=== PATIENT | female | born 1955 | race Caucasian/White ===

== ENCOUNTER → 2019-09-21 09:29 | Outpatient (BNVA) | payer SELFPAY | PROVIDERS: Visit Provider Nurse Practitioner Family | DX: N30.00 Acute cystitis without hematuria; R39.9 Unspecified symptoms and signs involving the genitourinary system | CPT/HCPCS: 80053; 81000; 87077; 87086; 87186 ==

== ENCOUNTER → 2020-07-29 15:06 | Outpatient (BNVA) | payer OTHER, SELFPAY | PROVIDERS: Visit Provider Obstetrics & Gynecology | DX: N81.4 Uterovaginal prolapse, unspecified (principal) | CPT/HCPCS: 76830 ==

== ENCOUNTER → 2020-09-25 08:08 | Outpatient (BNVA) | payer OTHER, SELFPAY | PROVIDERS: Visit Provider Obstetrics & Gynecology | DX: N81.2 Incomplete uterovaginal prolapse (principal); Z20.822 Contact with and (suspected) exposure to COVID-19 | CPT/HCPCS: 87635 ==

== ENCOUNTER 2020-09-30 10:43 | Observation (INO) | payer OTHER, SELFPAY ==
[2020-09-25 09:54] VITALS: BMI 26.0
--- NOTE | 2020-09-25 10:06 | ANES.PREANE2 ---
Pre-Anesthetic Assessment Pre-Anesthetic Assessment: Height/Weight: Height 1.55 m Weight 62.596 kg Proposed Procedure: Operation Date: 09/30/20 09:00 Proposed Procedures p Total Vaginal Hysterectomy 39297 [id number] [id number] 18675 N81.2(Not Applicable) - Caleb Dowell MD s Salpingo-Oophorectomy (Vaginal)(Not Applicable) - MD godfrey Maki Anterior Repair Anterior Colporrhaphy(Not Applicable) - MD godfrey Maki Posterior Repair Posterior Colporrhaphy(Not Applicable) - Caleb Dowell MD s Midurthral single incison sling(Not Applicable) - Caleb Dowell MD s Sacrospinous Ligament Suspension(Not Applicable) - Caleb Dowell MD Was Beta Jose Rafael taken within 24 hours: N/A Was Clonidine taken within 24 hours: N/A Social: Social History: No alcohol and No tobacco Exam: Pre-Anes Outpt Exam: alert, oriented x 3, clear to auscultation bilaterally and regular rate & rhythm Airway: Submandibular: WNL Cervical ROM: WNL MP: 2 Dentition: Chipped Pulmonary: Pulmonary: Asthma Anesthetic Plan: ASA status: 2 Anesthesia: General Risk of > 500 ml blood loss (7ml/kg in children): No PFSH Anesthesia PFSH: Medical History Asthma Diagnosed as a child and symptoms are controlled with albuterol and steroid inhaler. Symptoms are managed by her primary care provider at [facility]. She states that she has never been told she has COPD No pertinent past medical history Denies diabetes, hypertension, seizures, DVT/PE PCP: K[facility] Del Valle Surgical History S/P appendectomy at age 15--- open procedure via right lower quadrant incision Status post tubal ligation Age 30--laparoscopic procedure Family History Family/Other Colon cancer maternal uncle, diagnosed in his 60s Diabetes maternal uncle Mother Diabetes Brother Diabetes Grandmother Diabetes maternal and paternal Heart disease maternal and paternal Hypertension maternal Stroke materal Thyroid condition maternal Denies family history of Ovarian cancer Hyperlipidemia Breast cancer Uterine cancer Data Anesthesia Cardiac Studies: No Data to Display
[2020-09-30] VITALS (21 sets, daily range): BP systolic 121–158; BP diastolic 64–99; PULSE 56–84; RESP 14–25; TEMP 36.2–36.6; O2SAT 90–97
[2020-09-30 06:35] LABS: Basophils # 0.1 10^3/uL (0.0-0.1); Eosinophils # 0.2 10^3/uL (0.0-0.8); Eosinophils % 1.5 %; Hematocrit 45.4 % (37.0-47.0); Hemoglobin 14.8 g/dL (11.5-15.3); Lymphocytes # 2.6 10^3/uL (0.8-4.8); Lymphocytes % 26.3 %; Mean Corpuscular HGB Conc 32.6 g/dL (30.0-36.0); Mean Corpuscular Hemoglobin 27.2 pg (28.0-34.0); Mean Corpuscular Volume 83.5 fL (81-99); Mean Platelet Volume 9.8 fL (7.4-10.4); Monocytes # 0.7 10^3/uL (0.2-0.9); Monocytes % 7.3 %; Neutrophils # 6.18 10^3/uL (1.8-7.7); Neutrophils % 62.9 %; Nucleated Red Blood Cells % 0 %; Platelet Count 290 10^3/cmm (130-400); Red Blood Count 5.44 10^6/uL (4.1-5.3); Red Cell Distribution Width 14.4 % (12.1-15.1); White Blood Count 9.8 10^3/uL (4.0-10.0)
[2020-09-30 06:37] LABS: Add Urine Microscopic? NO; Charge for UA Resulting for Rev
[2020-09-30] MEDS: sodium chloride 0.9% 500 ML IV (06:38)
[2020-09-30] MEDS: scopolamine 1.5 Patch 1 PATCH TRANSDERMA (06:41)
[2020-09-30] MEDS: enoxaparin 30 mg/0.3 mL Syringe SUBCUT (06:41)
--- NOTE | 2020-09-30 06:42 | P.ANESUD_ITS ---
Pre-Anesthetic Update Pre-Anesthetic Assessment: Date of Surgery/Procedure: 09/30/20 Preop Shama gnosis: Uterine Prolapse stage III, cystocele, incontinence Proposed Procedure: Operation Date: 09/30/20 07:00 Proposed Procedures p Total Vaginal Hysterectomy 51332 [id number] 08995 N81.2(Not Applicable) - Caleb Dowell MD s Salpingo-Oophorectomy (Vaginal)(Not Applicable) - Caleb Dowell MD s Anterior Repair Anterior Colporrhaphy(Not Applicable) - Caleb Dowell MD s Posterior Repair Posterior Colporrhaphy(Not Applicable) - Caleb Dowell MD s Midurthral single incison sling(Not Applicable) - Caleb Dowell MD s Sacrospinous Ligament Suspension(Not Applicable) - Caleb Dowell MD Any changes to Pre-Anesthetic Assessment?: No Last Intake: Intake Last Liquid Date 09/29/20 Last Liquid Time 21:00 Last Solid Date 09/29/20 Last Solid Time 21:00 Labs Last 48hrs: Laboratory Results - last 48 hr 09/30/20 06:25 WBC 9.8 RBC 5.44 H Hgb 14.8 Hct 45.4 MCV 83.5 MCH 27.2 L MCHC 32.6 RDW 14.4 Plt Count 290 MPV 9.8 Neut % (Auto) 62.9 Lymph % (Auto) 26.3 Stevens % (Auto) 7.3 Eos % (Auto) 1.5 Baso % (Auto) 1.0 Neut # (Auto) 6.18 Lymph # (Auto) 2.6 Stevens # (Auto) 0.7 Eos # (Auto) 0.2 Baso # (Auto) 0.1 Nucleated RBC % (a uto) 0 Nucleated RBCs # 0.0 Vitals: Temperature 97.2 F L 09/30/20 06:05 Temperature Source Temporal Artery S can 09/30/20 06:05 Pulse Rate 64 09/30/20 06:05 Respiratory Rate 18 09/30/20 06:05 Blood Pressure 158/99 09/30/20 06:05 Blood Pressure Abby n 118 09/30/20 06:05 Pulse Oximetry 95 09/30/20 06:05 Oxygen Delivery Me thod 09/30/20 06:05 Exam: Pre-Anes Outpt Exam: alert, oriented x 3, clear to auscultation bilaterally and regular rate & rhythm Cardiac Studies: No Data to Display
--- NOTE | 2020-09-30 06:53 | W.PM.OPSUD ---
Surgery/Procedure H&P Update DATE OF PROCEDURE: September 30, 2020 DATE H&P PERFORMED: 09/25/20 H&P UPDATE INFORMATION: I have reviewed H&P completed within last 30 days, I have examined patient prior to procedure and No changes to prior documentation PREOP DIAGNOSIS: Uterine Prolapse stage III, cystocele, incontinence PLANNED PROCEDURE: Operation Date: 09/30/20 07:00 Proposed Procedures p Total Vaginal Hysterectomy 59835 [id number] 42395 N81.2(Not Applicable) - Caleb Dowell MD s Salpingo-Oophorectomy (Vaginal)(Not Applicable) - Caleb Dowell MD s Anterior Repair Anterior Colporrhaphy(Not Applicable) - Caleb Dowell MD s Posterior Repair Posterior Colporrhaphy(Not Applicable) - Caleb Dowell MD s Midurthral single incison sling(Not Applicable) - Caleb Dowell MD s Sacrospinous Ligament Suspension(Not Applicable) - Caleb Dowell MD
[2020-09-30] MEDS: vancomycin 1,000 MG in sodium chloride 0.9% 250 ML 250 MG IV (07:00)
[2020-09-30] MEDS: levofloxacin-dextrose 5 % 500 MG/100 ML PREMIX 100 MG IV (07:00)
[2020-09-30 07:08] LABS: Bilirubin Urine Neg (Negative); Blood Urine Neg (Negative); Glucose Urine UA Norm (Normal); Ketones Urine Negative (Negative); Leukocyte Esterase Urine Negative (Negative); Nitrate Urine Negative (Negative); Protein Urine Neg (Negative); Specific Gravity, Urine 1.015 (1.005-1.030); Urine Appearance Clear (CLEAR); Urine Color Yellow (Yellow); Urobilinogen Urine Norm (Negative); pH Urine 5 (5-7)
[2020-09-30 07:08] LABS: INR 0.91 (0.8-1.2)
[2020-09-30 07:19] LABS: Alanine Aminotransferase 14 U/L (0-33); Albumin Level 4.2 g/dL (3.5-5.2); Alkaline Phosphatase 75 IU/L (35-105); Anion Gap 13.2 (5-19); Aspartate Amino Transferase 13 U/L (0-32); Blood Urea Nitrogen 15 mg/dL (8-23); Calcium 9.4 mg/dL (8.5-10.5); Carbon Dioxide 27 mmol/L (22-29); Chloride 106 mmol/L (98-107); Creatinine Clr Calc Pharmacy 69.7593; Globulin 2.8 g/dL (1.3-4.6); Glomerular Filtration Rate 84.5 mL/min (90-130); Glucose 108 mg/dL (65-115); Osmolality Calculated 295 mOsm/kg (285-295); Potassium 4.2 mmol/L (3.5-5.1); Sodium 142 mmol/L (136-145); Total Bilirubin 0.8 mg/dL (0.15-1.2)
--- NOTE | 2020-09-30 07:52 | SUR.OPER ---
Called and notified daughter of surgical start and progress.
--- NOTE | 2020-09-30 08:57 | SUR.OPER ---
called and updated daughter of surgical progress.
[2020-09-30] MEDS: estrogens Conjugated Cream 30 gm 1 APPLIC VAGINAL (10:00)
--- NOTE | 2020-09-30 10:59 | P.OP_ITS ---
Operative Report Date of procedure: September 30, 2020 Pre-op Diagnosis: Uterine Prolapse stage IV, cystocele, incontinence Post-op diagnosis: same Post-op Diagnosis: complete prolapse Procedure Done: Total vaginal hysterectomy with bilateral salpingo-oophorectomy Anterior colporrhaphy augmented with allograft Single incision mid urethral sling Posterior colporrhaphy Sacrospinous fixation Cystoscopy Specimens removed/disposition: Uterus Left and right ovaries and tubes Surgeon: Caleb Dowell MD Anesthesia: General Estimated blood loss (mL): 200 IV fluids (mL): 2,000 Urine output (mL): 400 Complications: Difficult case due to distorted anatomy Condition: stable Disposition: PACU Procedure: After obtaining informed consent, the patient was taken to the operating room.The patient was placed in dorsal lithotomy position, prepped, and draped in the usual sterile fashion. The abdomen, vulva and vagina were prepped and draped in a sterile manner. The pre-procedure timeout verifying the correct patient, procedure, site and side, could not requirements was performed and acknowledge by the OR team. A Barrera catheter was placed. A Bookwalter vaginal retractor was placed into the vagina in usual manner visualize the cervix. Cervix was grasped with a single tooth tenaculum and circumferentially infiltrated with 2% Xylocaine with epinephrine. Then cervix was circumferentially incised with bovie and the bladder was dissected off the pubovesical cervical fascia anteriorly with a sponge stick and Metzenbaum scissors. The anterior peritoneal reflection was identified and the anterior cul-de-sac was entered sharply with Metzenbaum scissors. The same procedure was performed posteriorly and a posterior colpotomy was made through the posterior cul-de-sac space without difficulty and the posterior blade of the Bookwalter vaginal retractor was advanced posteriorly into the cul-de-sac. At this time, the left and right uterosacral ligaments were isolated and ligated with 0 Vicryl. The Enseal device was placed over the uterosacral ligaments on either side and was then used in a serial fashion up through the cardinal ligaments bilaterally cross-clamped, cut, and sealed with the Enseal device. Finally, the uterine arteries were cross-clamped, cut, sealed and ligated with the Enseal device. Hemostasis was assured. The broad ligaments were then serially clamped, sealed and cut with the Enseal device on both sides. Excellent hemostasis was visualized. Both cornua were clamped, sealed and cut with the Enseal device. Then the pedicles were then suture ligated with excellent hemostasis. The uterus was excised and submitted for pathologic evaluation. No other abnormalities were noted in the pelvic cavity. The peritoneum was then closed in a pursestring fashion with 0 Vicryl suture. The vaginal cuff angles were closed with [id number] #0 Vicryl suture on both sides and transfixed with the ipsilateral cardinal and uterosacral ligaments. The remainder of the vaginal cuff was closed with #0 Vicryl in a running locked fashion. A vertical midline incision was made beneath the midurethra, nearly 1.5 cm length. Careful submucosal dissection was performed bilaterally up to the interior portion of the inferior pubic ramus. The insertion of adductor longus tendon on the patient?s pubic ramus was identified as reference land monster. Palpated the notch along the internal edge of ischiopubic ramus where the adductor longus tendon and the inferior pubic ramus meet. The Altis single incision sling (SIS) was selected. With thin porcine graft the mesh of the sling was lined anteriorly and posteriorly with the graft. Then the needle of the SIS inserted aiming at the location of this notch. One of the integrated self- fixating tips place onto the needle by sliding it over the end of the needle. The needle/sling assembly was inserted toward the location of identified reference notch making sure that the flat of the handle is perpendicular to the desired path. The needle was tracked along the posterior surface of the ischiop ubic ramus until the midline monster on the mesh is approximately at the midline position under the urethra. The needle was removed and the same was repeated on the contralateral side until the appropriate sling tension under the urethra was achieved ensuring that the mesh lays flat. The needle was removed and vaginal incision was closed in a running interlocking fashion with 2-0 Vicryl. The vaginal mucosa was then injected in the midline with normal saline. The vaginal mucosa was scored in the midline with the Bovie approximately 1 cm medial to the urethral meatus to 1 cm distal to the cervix. This vaginal mucosa was then undermined and then incised in the midline with the Metzenbaum scissors. The lateral aspects of the vaginal mucosa were then grasped with the Allis clamps and the vaginal mucosa was then dissected off the underlying fascia with the Metzenbaum scissors. Again, there was noted to be quite a bit of oozing at the incision, which was controlled with cautery. After adequate dissection was performed, bilaterally. A Coloplast allgraft is modified at time of application to fit spacea, 4 x 3 cm piece . The coloplast allograft placed in front of cystocele ready to be implanted facing the vagina mucosa. Suture is placed at distal end of graft and placed towards vaginal cuff. Final suture is placed on proximal portion of the graft to complete the placement overlying the bladder. Then Interrupted vertical mattress sutures of 0 Vicryl were used to elevate the cystocele superiorly. The excessive vaginal mucosa was then trimmed with the Metzenbaum scissors and the vaginal mucosa was then reapproximated in the running interlocking fashion with 2-0 Vicryl. The posterior vaginal mucosa is opened in the routine fashion Posterior Repair. A finger is inserted through the incision in the posterior vaginal mucosa, dissecting out the rectovaginal space (RVS). The right rectal pillar (RRP) is identified. The rectal pillar can be bluntly perforated either with the finger and with the tip of a long Jennifer clamp. A Gabriel-Gabe retractor is used for exposing the rectovaginal space in order to enter the pararectal space with retraction of the cardinal ligament, vagina, and rectum. Displacing the rectum to the left and the cardinal ligament and ureter anteriorly. A sponge dissector is used to bluntly dissect the sacrospinous ligament removing areolar tissue. The ischial spine was palpated directly, and a area approximately 2 cm medial to the spine was selected for insertion of the Anchorsure transvaginal sacrospinous fixation system. One end of the suture of Anchoresure system inserted through the sacrospinous ligament is placed through the muscular layer of the vagina. In a similar manner, the second suture is placed. The opposite end of the suture in the s acrospinous ligament is left free and held on a small hemostat. Then traction on this suture will draw the vaginal vault directly to the ligament, where a square knot affixes it to the sacrospinous ligament. After the jim stich is tied the second safety stich is tied. Then the colporrhaphy/vaginal repair is carried out in routine fashion. Then the Barrera catheter was removed and cystoscope was inserted. The bladder was filled with sterile water. Complete evaluation of the bladder mucosa was performed noting no lacerations, dimpling, tears, bleeding of the mucosa or muscular layers. Both ureteral orifices were identified. Prompt excretion of urine from both ureteral orifices was noted. Cystoscope was withdrawn. The Barrera catheter was replaced. Excellent hemostasis was obtained. A vaginal pack is placed overnight as postoperative support for the vaginal tissues after graft placement and closure of vaginal incisions. Sponge, lap, needle, and instrument counts were correct times three. The patient was taken to the recovery room, awake and in stable condition.
--- NOTE | 2020-09-30 11:22 | SUR.PHASEI ---
PT AWAKES CONFUSED PT REORIENTED MULTIPLE TIMES PT WANTS TO GET UP TO VOID, PT IN FORMED OF RODRIGUEZ REPEATEDLY PT DENIES PAIN AND NAUSEA, VSS ABD SOFT FR[place]ERICK PAD D/I FOLEYWITH LIGHT BLUE URINE, IN TUBING AND BAG. DR LAN AT BEDSIDE.
--- NOTE | 2020-09-30 11:31 | SUR.PHASEI ---
PT AWAKE ALERT DENIES PAIN AND NAUSEA, ONLY URGENCY, ATTEMPT TO GIVE REPORT TO FLOOR.
[2020-09-30] MEDS: dextrose 5%-lactated ringers 1,000 ML 125 ML IV ×2 (12:14→20:52)
[2020-09-30] MEDS: ketorolac 30 mg/mL INJ IVP (12:17)
[2020-09-30] MEDS: phenazopyridine 100 mg Tablet PO (12:56)
--- NOTE | 2020-09-30 14:34 | ANE.PACU2 ---
Inpatient post-anesthesia follow up: Airway intact: Yes Vital signs: Temperature 97.3 F Pulse Rate 62 Respiratory Rate 16 Blood Pressure 124/66 Pulse Oximetry 96 Oxygen Delivery Me thod Room Air Oxygen Flow Rate 3 Fraction of Inspir ed Oxygen Hydration adequate: Yes Nausea and vomiting: No Pain level: 1 Mental status: Baseline
[2020-09-30] MEDS: docusate sodium 100 mg Capsule PO (18:11)
[2020-09-30] MEDS: acetaminophen 325 mg Tablet 650 MG PO (18:17)
[2020-09-30] MEDS: ibuprofen 800 mg tablet PO (21:44)
--- NOTE | 2020-09-30 23:40 | PC.NURSE ---
Patient up to ambulate halls with standby assist with RN. Tolerates activity fair. AR RN
[2020-10-01 06:02] LABS: Hemoglobin 11.3 g/dL (11.5-15.3); Mean Corpuscular HGB Conc 32.3 g/dL (30.0-36.0); Mean Corpuscular Hemoglobin 27.2 pg (28.0-34.0); Mean Corpuscular Volume 84.1 fL (81-99); Mean Platelet Volume 9.9 fL (7.4-10.4); Platelet Count 256 10^3/cmm (130-400); Red Blood Count 4.16 10^6/uL (4.1-5.3); Red Cell Distribution Width 14.1 % (12.1-15.1); White Blood Count 14.4 10^3/uL (4.0-10.0)
--- NOTE | 2020-10-01 08:24 | PC.NURSE ---
PVR DONE AT THIS TIME, 340 ML WERE NOTED TO BE LEFT IN THE BLADDER
[2020-10-01] MEDS: HYDROcodone-acetaminophen 5-325 mg Tablet PO (08:27)
[2020-10-01] MEDS: ibuprofen 800 mg tablet PO (08:28)
[2020-10-01] MEDS: docusate sodium 100 mg Capsule PO (09:11)
--- NOTE | 2020-10-01 09:38 | P.DS_ITS ---
Discharge Providers SEGMENT PRODUCER Date of Admission: 09/30/20 10:43 Date of Discharge: 10/01/20 Attending Provider at Admission: Caleb Dowell MD Attending Provider at Discharge: Caleb Dowell MD Reason for Visit Reason for Visit: vaginal prolapse Hospital Course Hospital Course Mrs. Felix is a 65-year-old female with complete uterine prolapse, admitted for a total vaginal hysterectomy with anterior colporrhaphy, posterior colporrhaphy, single incision mid urethral sling and sacrospinous fixation. The procedures were performed without complications. Overnight observation uneventful. Tolerating diet well. Ambulating without difficulty. She is afebrile and hemodynamically stable. Patient was advised for the next 2 weeks to continue on soft mechanical diet. PVR was elevated and patient instructed to go home with Barrera catheter in place and return to the clinic Monday. Physical Exam Narrative: EXAM NARRATIVE: GA: Alert and oriented ?3. HEENT: WNL. Heart: Regular rate and rhythm. Lungs: Clear to auscultation bilaterally. Abdomen: Bowel sounds present, nontender LIVING MANAGER: spotting. Extremities: No edema, no cyanosis, no calves pain. Urinary Catheter Management^: Barrera: Cath Placed During This Visit: yes, but has since been removed by the nurse Reason for Continuing Indwelling Catheter: Not indwelling catheter Urinary Catheter Date of Insertion: 09/30/20 Urinary Catheter Time of Insertion: 07:45 Date Urinary Catheter Removed: 10/01/20 Time Urinary Catheter Discontinued: 05:50 Discharge Data Data Completed and Pending: Pending at discharge Category Date Time Status Pathology: Surgic al [PTH] Routine Pth 09/30/20 10:31 Received Labs from last 24 hours 10/01/20 05:50 WBC 14.4 H RBC 4.16 Hgb 11.3 L Hct 35.0 L MCV 84.1 MCH 27.2 L MCHC 32.3 RDW 14.1 Plt Count 256 MPV 9.9 Vitals: Last Vital Signs Temp 97.8 F 09/30/20 21:46 Pulse 70 09/30/20 22:30 Resp 18 09/30/20 22:30 BP 138/64 09/30/20 21:46 Pulse Ox 96 09/30/20 22:30 Discharge Plan Discharge Patient Disposition: Home Condition: Stable Prescriptions: New ibuprofen 800 mg tablet 800 mg PO TID PRN (Reason: pain) Qty: 60 RF: 0 hydrocodone-acetaminophen 5-325 mg tablet 1 tab PO Q4H PRN (Reason: pain) Qty: 30 RF: 0 nitrofurantoin macrocrystal 100 mg capsule 100 mg PO Q24H Qty: 10 RF: 0 Colace 100 mg capsule 100 mg PO BID Qty: 90 RF: 0 Continued Dulera 200-5 mcg/actuation HFA aerosol inhaler 2 puff INHALATION BID RF: 0 albuterol sulfate 90 mcg/actuation HFA aerosol inhaler 2 puff INHALATION Q6H PRN (Reason: sob) RF: 0 Discharge Orders: Discharge Order (Routine); Ordered 10/01/20 Ordered By: Caleb Dowell Referrals: Caleb Dowell MD [Physician] - 10/05/20 Discharge Diet: Soft Mechanical Discharge Activity: Increase activity as tolerated Patient Instructions: Vaginal Hysterectomy (DC), Bladder Sling Procedures (DC), Posterior Vaginal Repair (DC), Opioid Safety Activity Restrictions/Additional Instructions: 1. Please call [facility] on next working day to make your post-operative appointment on Monday for catheter removal. 2. Please stay home until you come back to the clinic on first post-operative check up. 3. Please follow instructions on your medications CAREFULLY. 4. If you have abdominal incision, do not cover it unless dressing is necessary because of drainage. OK to shower, but avoid bath. Leave steri-strips until they fall off. If they are still on one week after surgery, you may remove them. 5. If you had vaginal surgery or vaginal repair, Dr. Dowell may instruct you to take SITZ bath. 6. Yellow, blood tinged odorous vaginal discharge is usually normal after hys terectomy or vaginal surgeries. 7. No sexual intercourse, tampons, or douches until you are completely released from the post-operative care. 8. Avoid constipation by eating right and maybe using some Metamucil or Milk of Magnesia. 9. All prescription refills are given during the working hours. Please do no wait till it runs out. Call the clinic at [phone] before your medication runs out. The clinic will get in touch with your doctor to prescribe medications if necessary. 10. Please remain within 40 mile radius from our hospital because emergencies do happen now and then during the post-operative period. 11. If you have stairs at home, take one step at a time slowly and minimize the number of trips. It helps to stay in one floor for the next few days. No lifting except what you can lift by one hand until you are released from the post-operative care. 12. Driving is discouraged until you are well healed. It may be 3-4 weeks before you feel strong enough to drive. You should be able to turn and look through the rear window without pain and you should be able to push the brake pedal very hard without pain before you drive. No fast rules, but SAFETY should be your primary concern. DO NOT drive if you are on sedating medications such as narcotics. 13. Call the clinic (during working hours) to make urgent appointment or go to the Emergency room, if any of the following occurs: i. Vaginal bleeding becomes heavy, more than a period. ii. Incision becomes red and sore, or drains pus. iii. Your temperature is over 100.4 or you have chill. iv. IV site becomes red and swollen (a little ``knot?? is usually OK) v. Persistent nausea and vomiting vi. Persistent constipation or diarrhea vii. Rash or allergic reaction to medications. Discharge Attestations SEGMENT PRODUCER Time Spent in Discharge Care*: greater than 30 min Coding Level of Care Code Acute Men'S Golf Coach for Gideon Gorman
[2020-10-01 09:45] VITALS: PULSE 82; RESP 18; O2SAT 96
--- NOTE | 2020-10-01 10:12 | PC.NURSE ---
Patient had haddad catheter placed at this time. Patient states that she doesnt need education on leg bag or how to switch the bags over because she has previous experience with switching them back and forth. Patient was reminded that the volume of the leg bag is much smaller then the haddad bag and that it would be suggested to put the larger bag on for bedtime instead of leg bag.
[2020-10-01 10:36] VITALS: BP 140/70; PULSE 67; RESP 18; TEMP 36.4; O2SAT 96
--- NOTE | 2020-10-01 11:10 | PC.NURSE ---
Monday appointment with Dr. Dowell called to patient at this time. Pt to have appointment at 1015 on 10/05/20. Message left for patient to call the floor.
== END 2020-10-01 11:05 | disposition home or self-care (01) ==
LOC: OBGYN 10:43
PROVIDERS: Admitting Provider Obstetrics & Gynecology; Visit Provider Obstetrics & Gynecology
PROC: (CPT 57260; principal; 2020-09-30 07:00)
PROC: (CPT 58720; 2020-09-30 07:00)
PROC: 0JQC0ZZ Repair Pelvic Region Subcutaneous Tissue and Fascia, Open Approach (ICD-10-PCS; CPT 57240; 2020-09-30 07:00)
PROC: (CPT 57250; 2020-09-30 07:00)
PROC: (CPT 57288; 2020-09-30 07:00)
PROC: (CPT 57282; 2020-09-30 07:00)
DX: N81.3 Complete uterovaginal prolapse (principal); R32 Unspecified urinary incontinence; J45.909 Unspecified asthma, uncomplicated; Z82.49 Family history of ischemic heart disease and other diseases of the circulatory system; Z83.3 Family history of diabetes mellitus; Z82.3 Family history of stroke; Z80.0 Family history of malignant neoplasm of digestive organs
CPT/HCPCS: 57260; 57288; 58262; 36415; 51702; 51798; 80053; 81003; 85025; 85027; 85610; 86850; 86900; 88307; 96365; 96372; C1713; C1762; G0378; J1100; J1650; J1885; J1940; J1956; J2370; J2405; J2704; J3010; J3370; J3490; J3535; J7040; J7050; Q9968